=== PATIENT | male | born 2000 | race Caucasian/White ===

== ENCOUNTER 2024-07-04 09:12 | Outpatient (AMB) | payer MEDICAID, SELFPAY ==
[2024-07-04 09:21] VITALS: BP 156/75; PULSE 110; RESP 19; TEMP 37.1; O2SAT 97; BMI 56.2
--- NOTE | 2024-07-04 09:21 | PD.GSCLVISIT ---
Vital Signs - [facility] 07/04/24 09:21 Height 1.78 m Height Method Stated Weight 177.808 kg Weight Measurement Method Standing Scale BMI 56.2 BP 156/75 H Blood Pressure Source Automatic Cuff Blood Pressure Location Left Upper Arm Position Sitting Respiration 19 Pulse 110 H Pulse Source Monitor Temp 98.7 F Temp Source Temporal Artery Scan Pulse Oximetry (%) 97 Oxygen Delivery Method Room Air Med/Allergies Allergies & Medications Allergies Penicillins Allergy (Mild, Verified 07/04/24 09:22) rash Medication Reconciliation pantoprazole 40 mg tablet,delayed release (Protonix) 40 mg PO QAM #10 tabs 01/29/22 [Rx Confirmed 07/04/24] MA Intake Visit Data Collection New Patient or Established: Established Patient (seen at [facility] within 3 years) Seen by Clinical Staff ONLY (RN/MARCIO): No Reason for Visit:: REFERRAL MELENA Pain Present Currently: No PCP or OBGYN visit in last 3 months: Yes Hx Now: No Do You Feel Safe at Home: Yes Authorities Contacted: N/A Smoking Status Smoking Status: Current some day smoker Cessation Counseling Provided: TOMAS was advised that quitting smoking is the single most important factor to protect the health of themselves and their family. Discussed the benefits of quitting smoking with patient. Encouraged patient to quit smoking and provided Cessation assistance materials and resources. Tobacco Use: Cigarette (MARIJUANA) Years smoked: 3 Are you interested in quitting?: No Immunization / Flu Flu Vaccine in the Last 12 Months: No Flu Vaccine Exclusion Criteria: No Exclusion Criteria Past Medical History Past Medical History CARDIAC: Negative Cardiac Disorders or Congestive Heart Failure RESPIRATORY: Negative Chronic Obstructive Pulmonary Disease (COPD) or Asthma GENITOURINARY: Negative Renal Disease ENDOCRINE: Negative Diabetes Mellitus Type 1 or Diabetes Mellitus Type 2 HEMATOLOGIC: Negative Sickle Cell Disease PSYCHO/SOCIAL: Positive Attention Deficit Hyperactivity Disorder Social History SMOKING STATUS: Smoking status: Current some day smoker ALCOHOL: Alcohol Intake: Never HPI HPI Narrative 23M with morbid obesity referred for hematochezia. Last month pt had multiple episodes of large volume hematochezia while having BMs. He denies any straining or loose stools, states they are soft without any straining but at the time of the episode he did have rectal pain though not so severe that he would describe it as passing shards of glass. He denies any changes in bowel habits, anorexia, and denies any fever or malaise. He also does not have any known history of hemorrhoids and has not noticed and protruding tissue at the anus. At the moment he is feeling well and has not had any recent episodes of bleeding. He has not yet had a colonoscopy Pt reports having a similar episode of bleeding years ago which self-resolved PMH: Morbid obesity PSHx: Tonsillectomy Meds: Excedrin PRN (pt states takes approx 1/week) Allergies: PCN Social hx: Nonsmoker Family hx: unsure on father's side but no known IBD or CRC on mother's side ROS Review of Systems Systems Reviewed: All systems reviewed, normal except as documented Objective/Exam General General Appearance: alert, cooperative and well groomed Resp Respiratory exam: Absent respiratory distress Assessment & Plan Diagnosis / Problem List (1) Hematochezia: Status: Acute Assessment & Plan: 23M with multiple episodes of large volume hematochezia last month requiring diagnostic colonoscopy for evaluation. I explained benefits/risks including bleeding, perforation and the potential of needing to abort prematurely for safety. All questions were answered and pt is agreeable to proceeding Plan: Colonoscopy under MAC due to BMI >50 Office Procedures GNS Level of Care Nursing/Assessment Patient Status: Established Patient Nursing Assessment/Reassesment: Medication Reconciliation, Update PMH in EMR and Vital Signs Coordination of Care: Complex Care and Chronic Disease 1-5, Consent,records obtained, informed consent, Education Simp Pt/Fam, Results/Orders obtained and Staff clarify orders Established Patient Charge Established Patient Point Assignment: 90 Established Patient Point Charge: EP Level 3 (80-115) Patient Portal Questionaires Social History Tobacco History Smoking Status: Current some day smoker Alcohol History Alcohol Intake: Never Domestic Abuse History Do You Feel Safe at Home: Yes Review of Systems Report any current symptoms Only answer those that you have currently: Past Medical History Past Medical History Have you ever been diagnosed with any of the following: Cardiology Problems Congestive Heart Failure: No Respiratory Problems Chronic Obstructive Pulmonary Disease (COPD): No Asthma: No Genital/Urinary Problems Renal Disease: No Endocrine Problems Diabetes Mellitus Type 1: No Diabetes Mellitus Type 2: No Blood Problems Sickle Cell Disease: No Psychologic Problems Attention Deficit Hyperactivity Disorder: Yes
== END 2024-07-04 09:40 | disposition home or self-care (01) ==
LOC: HODSRG 09:12
PROVIDERS: PCP Family Medicine; Referring Provider Family Medicine; Supervising Provider Surgery; Visit Provider Surgery
DX: K92.1 Melena (principal)
CPT/HCPCS: 99213; G0463